=== PATIENT | male | born 2000 | race Asian ===

== ENCOUNTER → 2022-08-08 12:45 | Outpatient (CLI) | payer OTHER, SELFPAY ==
--- NOTE | 2022-08-08 12:51 | DI.RAD.S_ITS ---
PROCEDURE: FL SHOULDER INJECTION MR/CT RT INDICATIONS: Pain in right shoulder COMPARISON: None. TECHNIQUE: The indications, alternatives, benefits, risks, and complications of the procedure were explained to the patient. Written informed consent was obtained and placed in the chart. The shoulder was examined fluoroscopically and a site for needle placement chosen for entry into the glenohumeral joint from an anterior approach. The skin was prepped and draped in a sterile fashion, and 1% lidocaine infiltrated from skin down to joint capsule. A spinal needle was inserted into the glenohumeral joint, and a small amount of iodinated contrast media injected to confirm intra-articular placement of the needle tip. This was followed by approximately [address] due to medium contrast. The needle was removed and a dressing was applied. The patient was given postprocedural instructions and sent to the CT suite for imaging. FINDINGS: A single fluoroscopic spot image demonstrates intra-articular location of injected iodinated contrast. IMPRESSION: Successful fluoroscopically guided administration of iodinated contrast solution into the shoulder joint for MR arthrogram. Dictated by: Rolando Werner M.D. on 08/09/2022 at 8:37 Approved by: Rolando Werner M.D. on 08/09/2022 at 8:37
--- NOTE | 2022-08-08 12:51 | DI.MRI.S_ITS ---
PROCEDURE: MR SHOULDER RT W CON INDICATIONS: Pain in right shoulder TECHNIQUE: After the administration of 12 mL of dilute intra-articular Gadolinium contrast, oblique coronal T1 and T2 spin echo with fat saturation, oblique sagittal T1 spin echo with and without fat saturation, oblique sagittal T2 fast spin echo with fat saturation, axial T1 spin echo with fat saturation through the shoulder. COMPARISON: None. FINDINGS: Image quality: Excellent. Rotator cuff: Low-grade articular surface partial-thickness tear involving distal supraspinatus at its insertion on the humeral head is seen. Distal infraspinatus tendinosis is also seen. Distal subscapularis tendon is intact. No full-thickness rotator cuff tendon rupture. No rotator cuff muscle atrophy on sagittal images. Bones and bursae: There is an acute to subacute appearing Hill-Sachs deformity involving posterior lateral aspect of humeral head with marrow edema. No corresponding Bankart fracture. No acromioclavicular joint degeneration. The acromion demonstrates conventional anatomy, without an os acromiale. Capsule and soft tissues: Signal abnormality and contour irregularity involving anterior inferior labrum at 4 to 6 o'clock position is seen consistent with anterior inferior labral tear . The long head of the biceps tendon demonstrates normal location and morphology. The rotator interval appears normal, without fibrosis. The coracohumeral ligament is of normal thickness. There is suggestion of a small loose body adjacent to anterior inferior labrum and measures 2 x 4 mm in size. IMPRESSION: 1. Hill-Sachs fracture involving posterior lateral humeral head. No corresponding Bankart fracture. 2. Low-grade articular surface partial-thickness tear involving distal supraspinatus. No full-thickness rotator cuff tendon rupture. 3. Anterior-inferior labral tear at 4 to 6 o'clock position consistent with Bankart lesion. 4. 4 x 2 mm loose body within glenohumeral joint space as above. Dictated by: Jesus Flood M.D. on 08/08/2022 at 15:41 Approved by: Jesus Flood M.D. on 08/08/2022 at 15:55
== END ==
PROVIDERS: Referring Provider Student in an Organized Health Care Education/Training Program; Visit Provider Student in an Organized Health Care Education/Training Program
DX: S42.291A Other displaced fracture of upper end of right humerus, initial encounter for closed fracture (principal); S46.011A Strain of muscle(s) and tendon(s) of the rotator cuff of right shoulder, initial encounter; S43.491A Other sprain of right shoulder joint, initial encounter; M25.511 Pain in right shoulder
CPT/HCPCS: 23350; 73222; 77002